=== PATIENT | female | born 1995 | race African-American/Black ===

== ENCOUNTER 2023-07-24 14:23 | Outpatient (REF) | payer BC, SELFPAY | END 2023-07-24 14:24 | disposition home or self-care (01) | LOC: LBN 14:23 | PROVIDERS: Visit Provider Otolaryngology | DX: J03.90 Acute tonsillitis, unspecified (principal) | CPT/HCPCS: 87070 ==

== ENCOUNTER 2023-12-20 14:29 | Outpatient (REF) | payer BC, SELFPAY ==
--- NOTE | 2023-12-20 14:19 | PAPFT_PTH ---
PATIENT: Soheila Vogt LOC: RAN U#:[id number] AGE/SX: 28/F ROOM: RE12/20/[address]: Helen Berumen MD : 1995 BED: DIS: 12/20/2023 SPEC #: [id number] RECD: 12/20/23 17:39 STATUS: JOSEF REKelly #: [id number] QIAN: 12/20/23 14:[address]: Helen Berumen DEPT: COUNTS INCLUDE 234 BEDS AT THE [facility] Cytology RECD BY: Susana Langley ENTERED: 12/20/23 17:40 SP TYPE: PAPFT MICHAEL DR: Adelina Dhillon, DO Tissues: 1 - CX/ENDOCX FOR PAP SMEARS Procedures: PAP THIN PREP/[facility] Screening Comments: [id number]
== END 2023-12-20 14:30 | disposition home or self-care (01) ==
LOC: LBN 14:29
PROVIDERS: PCP Student in an Organized Health Care Education/Training Program; Visit Provider Obstetrics & Gynecology
DX: Z12.4 Encounter for screening for malignant neoplasm of cervix (principal)
CPT/HCPCS: 88142

== ENCOUNTER 2025-04-03 01:09 | Outpatient (CLI) | payer BC, SELFPAY ==
[2025-04-03 14:15] LABS: HCT 39.6 % (36.0-46.0); HGB 13.3 g/dL (11.2-15.7); MCH 30.6 pg (27.0-33.0); MCHC 33.6 % (32.0-36.0); MCV 91 fL (80-95); MPV 9.2 fL (8.0-11.0); Platelet Count 334 10^3/uL (130-400); RBC 4.35 10^6/uL (3.93-5.22); RDW 12.8 % (11.7-14.6); RDW-SD 42.5 fL; WBC 6.52 10^3/uL (4.4-10.8)
[2025-04-03 15:03] LABS: Ferritin 51 ng/mL (8-252); TSH (W/Ref FT4) 0.99 uIU/mL (0.36-3.74)
== END 2025-04-03 01:10 | disposition home or self-care (01) ==
PROVIDERS: PCP Nurse Practitioner Family; Visit Provider Nurse Practitioner Family
DX: N92.6 Irregular menstruation, unspecified (principal); N92.0 Excessive and frequent menstruation with regular cycle
CPT/HCPCS: 36415; 85027; 82728; 84443

== ENCOUNTER 2025-05-27 14:31 | Outpatient (REF) | payer BC, SELFPAY ==
[2025-05-28 11:27] LABS: HSV 1 DNA Result Negative (Negative); HSV 2 DNA Result Positive (Negative)
== END 2025-05-27 14:32 | disposition home or self-care (01) ==
LOC: LBN 14:31
PROVIDERS: PCP Nurse Practitioner Family; Visit Provider Nurse Practitioner Family
DX: N89.8 Other specified noninflammatory disorders of vagina (principal)
CPT/HCPCS: 87529

== ENCOUNTER 2025-07-31 14:55 | Outpatient (REF) | payer BC, SELFPAY | END 2025-07-31 14:56 | disposition home or self-care (01) | LOC: LBN 14:55 | PROVIDERS: PCP Nurse Practitioner Family; Visit Provider Family Medicine | DX: J02.9 Acute pharyngitis, unspecified (principal); J35.8 Other chronic diseases of tonsils and adenoids | CPT/HCPCS: 87070 ==